=== PATIENT | female | born 1975 | race Caucasian/White ===

== ENCOUNTER → 2021-03-11 13:16 | Outpatient (CLI) | payer OTHER, SELFPAY ==
[2021-03-14 13:02] LABS: HPV APTIMA, High Risk Negative (Negative)
== END ==
PROVIDERS: Visit Provider Student in an Organized Health Care Education/Training Program
DX: Z12.4 Encounter for screening for malignant neoplasm of cervix (principal)
CPT/HCPCS: 87624; 88175; G0145